=== PATIENT | male | born 1935 | race African-American/Black ===

== ENCOUNTER 2021-10-13 14:35 | Emergency (ER) | payer MEDICARE ==
[~2021-10-13] VITALS: Ht 180.3 cm; Wt 68.0 kg
[2021-10-13 15:18] LABS: BASOPHILS % (AUTO) 0.4 % (0.0-2.0); EOSINOPHILS % (AUTO) 0.5 % (1.0-6.0); HEMATOCRIT 33.8 % (41-53); HEMOGLOBIN 10.9 g/dL (13.5-17.5); LYMPHOCYTES # (AUTO) 0.8 K/uL (1.0-4.8); LYMPHOCYTES % (AUTO) 18.9 % (22.0-44.0); MEAN CORPUSCULAR HEMOGLOBIN 27.3 pg (26.0-34.0); MEAN CORPUSCULAR HGB CONC 32.2 G/dL (31.0-37.0); MEAN CORPUSCULAR VOLUME 85 fL (80-100); MONOCYTES # (AUTO) 0.6 K/uL (0.1-1.0); MONOCYTES % (AUTO) 13.4 % (2.0-9.0); NEUTROPHILS % (AUTO) 66.8 % (40.0-70.0); PLATELET COUNT (AUTO) 140 K/uL (150-450); RED BLOOD CELL COUNT(AUTO) 3.98 MIL/uL (4.50-5.90)
[2021-10-13 15:33] LABS: COVID AG,FIA SOURCE NASAL SWAB
[2021-10-13 15:38] LABS: ANION GAP 4 mmol/L (8-16); CALCIUM, TOTAL 8.8 mg/dL (8.8-10.5); CARBON DIOXIDE 28 mmol/L (22-29); CHLORIDE 101 mmol/L (98-107); CREATININE 0.99 mg/dL (0.60-1.30); GLUCOSE,RANDOM 130 mg/dL (70-110); POTASSIUM 3.7 mmol/L (3.5-5.1); SODIUM SERUM 133 mmol/L (136-145); UREA NITROGEN, BLOOD 25 mg/dL (7-18)
[2021-10-13 15:39] LABS: GLOMERULAR FILTR. RATE CALC > 60 mL/min (>60)
[2021-10-13 15:40] LABS: PROTHROMBIN TIME 11.1 SEC (9.4-11.6)
[2021-10-13] MEDS ORDERED: SENN8.8S18 PO (15:47)
[2021-10-13] MEDS ORDERED: LOSA-381 PO (15:47)
[2021-10-13] MEDS ORDERED: ATOR10TA84 PO (15:47)
[2021-10-13] MEDS ORDERED: AMLO2.5T96 PO (15:47)
[2021-10-13] MEDS ORDERED: FAMO20 PO (15:47)
[2021-10-13] MEDS ORDERED: ASPI81TA87 PO (15:47)
[2021-10-13] MEDS ORDERED: TAMS-13 PO (15:47)
[2021-10-13 16:00] LABS: B-TYPE NATRIURETIC PEPTIDE 47 pg/mL (0-100)
[2021-10-13 16:02] LABS: ALANINE AMINOTRANSFERASE 26 U/L (12-78); ALBUMIN 3.2 g/dL (3.4-5.0); ALKALINE PHOSPHATASE 66 U/L (46-116); ASPARTATE AMINOTRANSFERASE 21 U/L (15-37); BILIRUBIN,TOTAL 0.3 mg/dL (0.1-1.0); CREATINE KINASE, TOTAL ONLY 156 U/L (39-308); TOTAL PROTEIN, SERUM 6.5 g/dL (6.4-8.2)
[2021-10-13] MEDS ORDERED: CefTRIAXone 1 GM/DEXTROSE 50 ML IV ONE (16:15)
[2021-10-13] MEDS ORDERED: ASPIRIN 81 MG CHEWABLE TABLET PO ONE (16:15)
[2021-10-13] MEDS ORDERED: AZITHROMYCIN 500 MG/NS 250 ML IV ONE (16:15)
[2021-10-13 16:49] VITALS: BP 118/78
== END 2021-10-13 17:32 | disposition left against medical advice (07) ==
LOC: EMS 14:35
DX: R07.9 Chest pain, unspecified (principal); I10 Essential (primary) hypertension; A80.9 Acute poliomyelitis, unspecified; Z20.822 Contact with and (suspected) exposure to COVID-19
CPT/HCPCS: 36415; 70450; 71045; 80053; 82550; 82962; 83880; 84484; 85025; 85610; 85730; 87426; 93005; 99285; J0456; J0696